=== PATIENT | male | born 1985 | race African-American/Black ===

== ENCOUNTER → 2017-08-10 | Emergency (ER) | payer BC ==
[~2017-08-10] VITALS: Ht 182.9 cm; Wt 77.1 kg
[~2017-08-10] MED LIST: ALPRAZOLAM ODT1 MG PO
== END | disposition left against medical advice (07) ==
LOC: ER 01:33
DX: Z53.20 Procedure and treatment not carried out because of patient's decision for unspecified reasons (principal)